=== PATIENT | male | born 1985 | race Caucasian/White ===

== ENCOUNTER 2021-04-02 11:53 | Emergency (ER) | payer BC, MEDICAID ==
[~2021-04-02] VITALS: Ht 180.3 cm; Wt 79.4 kg
[2021-04-02] MEDS ORDERED: ACYC200C31 PO (12:04)
--- NOTE | 2021-04-02 12:04 | NUR ---
Patient was seen by
[2021-04-02] MEDS ORDERED: IBUP-1958 PO (12:16)
[2021-04-02] MEDS ORDERED: IBUPROFEN 800 MG TABLET ONE (12:22)
[2021-04-02] MEDS ORDERED: IBUPROFEN 800 MG TABLET PO ONE (12:30)
== END 2021-04-02 12:24 | disposition home or self-care (01) ==
LOC: ER 11:53
DX: S13.4XXA Sprain of ligaments of cervical spine, initial encounter (principal); R51.9 Headache, unspecified; V49.9XXA Car occupant (driver) (passenger) injured in unspecified traffic accident, initial encounter; Y92.410 Unspecified street and highway as the place of occurrence of the external cause; Z85.47 Personal history of malignant neoplasm of testis; Z88.0 Allergy status to penicillin
CPT/HCPCS: A4663